=== PATIENT | female | born 1950 | race Caucasian/White ===

== ENCOUNTER 2017-03-20 10:53 | Outpatient (CLI) | payer MEDICARE ==
[2017-03-20 12:29] LABS: Calcium 8.8 mg/dL (7.8-10.44); Chloride 102 mmol/L (98-107); Potassium 3.5 mmol/L (3.5-5.1); Sodium 136 mmol/L (136-145)
[2017-03-20 14:33] LABS: Anisocytosis SLIGHT = 6-15 cells (100X) (0-5/hpf); Hemoglobin 8.7 g/dL (12.0-16.0); Hypochromia SLIGHT = 6-15 cells (100X) (0-5/hpf); Lymphocytes 26 % (21-51); MDiff Complete? YES; Mean Corpuscular HGB CONC 32.8 g/dL (32.0-36.0); Mean Corpuscular Hemoglobin 30.5 pg (27.0-31.0); Mean Corpuscular Volume 92.9 fl (81.0-99.0); Mean Platelet Volume 6.2 fL (7.4-10.4); Monocytes 12 % (0-10); Neutrophil 62 % (42-75); PLT Morphology Comment Appears Decreased; Platelet Count 102 thou/uL (130-400); RBC Distribution Width 15.6 % (11.5-14.5); Red Blood Cell (RBC) Count 2.86 mill/uL (4.20-5.40); White Blood Cell (WBC) Count 3.5 thou/uL (4.8-10.8)
[2017-03-20 14:41] LABS: AST (SGOT) 14 U/L (5-34); Bilirubin, Total 0.4 mg/dL (0.2-1.2); CRP (Inflammatory) 1.13 mg/dL (= or < 0.5)
[2017-03-20 16:26] LABS: ALT (SGPT) 12 U/L (8-55); Albumin 3.5 g/dL (3.4-4.8); Alkaline Phosphatase 110 U/L (40-150); BUN (Urea Nitrogen) 21 mg/dL (9.8-20.1); Calc. Creatinine Clearance 0 mL/min (70-130); Carbon Dioxide 22 mmol/L (23-31); Estimated GFR-MDRD 32; Glucose 83 mg/dL (80-115); Protein, Total 6.5 g/dL (6.0-8.3)
[2017-03-20 18:08] LABS: Anion Gap 16 mmol/L (10-20)
== END 2017-03-20 10:54 | disposition home or self-care (01) ==
LOC: NAV LABSP 10:53
PROVIDERS: ATTEND Family Medicine
DX: I12.9 Hypertensive chronic kidney disease with stage 1 through stage 4 chronic kidney disease, or unspecified chronic kidney disease (principal); C53.9 Malignant neoplasm of cervix uteri, unspecified; N13.30 Unspecified hydronephrosis; N17.9 Acute kidney failure, unspecified; A41.9 Sepsis, unspecified organism; N30.01 Acute cystitis with hematuria; B96.20 Unspecified Escherichia coli [E. coli] as the cause of diseases classified elsewhere; N18.9 Chronic kidney disease, unspecified
CPT/HCPCS: 80053; 85025; 86140

== ENCOUNTER 2017-04-07 13:07 | Outpatient (CLI) | payer MEDICARE ==
[2017-04-07 16:24] LABS: Hemoglobin 8.7 g/dL (12.0-16.0)
[2017-04-07 16:39] LABS: Anion Gap 16 mmol/L (10-20); BUN (Urea Nitrogen) 16 mg/dL (9.8-20.1); Calc. Creatinine Clearance 0 mL/min (70-130); Carbon Dioxide 20 mmol/L (23-31); Chloride 105 mmol/L (98-107); Estimated GFR-MDRD 30; Glucose 93 mg/dL (80-115); Sodium 137 mmol/L (136-145)
[2017-04-07 17:46] LABS: Follow-up Chemistry Comp? YES; Follow-up Result - Chemistry REPORT FAXED
[2017-04-08 18:16] LABS: Creatinine, Urine 83.77 mg/dL (47-110)
== END 2017-04-07 13:08 | disposition home or self-care (01) ==
LOC: NAV LABSP 13:07
PROVIDERS: ATTEND Internal Medicine Nephrology
DX: I12.9 Hypertensive chronic kidney disease with stage 1 through stage 4 chronic kidney disease, or unspecified chronic kidney disease (principal); N18.3 Chronic kidney disease, stage 3 (moderate)
CPT/HCPCS: 36415; 80048; 82306; 82570; 83970; 84156; 85014; 85018